=== PATIENT | male | born 1965 | race African-American/Black ===

== ENCOUNTER 2021-09-01 14:04 | Inpatient (IN) | payer OTHER ==
[2021-09-01] MEDS ORDERED: BENZOCAINE/MENTHOL (CHLORASEPTIC ) LOZENGE MM PRN (16:41)
[2021-09-01] MEDS ORDERED: MAG HYDROX/AL HYDROX/SIMETH 30 ML UNIT-DOSE CUP PO PRN (16:41)
[2021-09-01] MEDS ORDERED: ACETAMINOPHEN 325 MG TABLET (FP) PO PRN ×2 (16:41)
[2021-09-01] MEDS ORDERED: MAGNESIUM CITRATE 300 ML BOTTLE PO PRN (16:41)
[2021-09-01] MEDS ORDERED: methaDONE HCL 10 MG TABLET (FOR DETOX USE ONLY) PO ONE (16:41)
[2021-09-01] MEDS ORDERED: NICOTINE 10 MG CARTRIDGE (INHALER) IH PRN (16:41)
[2021-09-01] MEDS ORDERED: ONDANSETRON *ODT* 4 MG TABLET SL PRN (16:41)
[2021-09-01] MEDS ORDERED: MAGNESIUM HYDROX 2400MG/30ML ORAL SUSPENSION 30 ML CUP PO PRN (16:41)
[2021-09-01] MEDS ORDERED: cloNIDine HCL 0.1 MG TABLET PO PRN (16:41)
[2021-09-01] MEDS ORDERED: NICOTINE POLACRILEX 4 MG GUM BUC PRN (16:41)
[2021-09-01] MEDS ORDERED: DICYCLOMINE HCL 10 MG CAPSULE PO PRN (16:41)
[2021-09-01] MEDS ORDERED: BISMUTH SUBSALICYLATE 524 MG/30 ML PO PRN (16:41)
[2021-09-01] MEDS ORDERED: LOPERAMIDE HCL 2 MG CAPSULE PO PRN (16:41)
[2021-09-01] MEDS ORDERED: AMMONIUM LACTATE 12% LOTION 225 GM BOTTLE TP PRN (16:44)
[2021-09-01 18:54] VITALS: BMI 40.6
[2021-09-01] MEDS: ASPIRIN COATED 81 MG TABLET.EC PO SCH (19:00)
[2021-09-01] MEDS: METHOCARBAMOL 500 MG TABLET PO PRN (19:00)
[2021-09-01] MEDS: FAMOTIDINE 20 MG TABLET PO SCH (19:00)
[2021-09-01] MEDS: ALBUTEROL SO4 HFA INHALER IH PRN (21:46)
[2021-09-01] MEDS: TOLNAFTATE 1% CREAM 15 GM TUBE TP SCH (21:47)
[2021-09-01] MEDS: THIAMINE HCL 100 MG TABLET (FP) PO SCH (22:31)
[2021-09-01] MEDS: MELATONIN 5 MG TABLETS PO SCH (22:31)
[2021-09-02] MEDS ORDERED: methaDONE HCL 10 MG TABLET (FOR DETOX USE ONLY) ONE (09:47)
[2021-09-02] MEDS: FAMOTIDINE 20 MG TABLET PO SCH (10:34)
[2021-09-02] MEDS: ASPIRIN COATED 81 MG TABLET.EC PO SCH (10:34)
[2021-09-02] MEDS: ALBUTEROL SO4 HFA INHALER IH PRN (10:34)
[2021-09-02] MEDS: PRENATAL VITAMINS W/ FOLIC ACID TABLET (FP) PO SCH (10:34)
[2021-09-02] MEDS: TOLNAFTATE 1% CREAM 15 GM TUBE TP SCH ×2 (10:35→22:35)
[2021-09-02 11:39] LABS: HEMATOCRIT 29.2 % (35.4-49); HEMOGLOBIN 8.8 GM/dL (11.7-16.9); MCH 20.6 pg (25.7-33.7); MCHC 30.2 g/dl (32.0-35.9); MEAN CELL VOLUME 68.1 fl (80-96); MEAN PLT VOLUME 7.9 fl (7.5-11.1); PLATELET COUNT 311 10^3/uL (134-434); RBC 4.28 M/mm3 (4.00-5.60); RDW 19.9 % (11.9-15.9); WHITE BLOOD COUNT 4.3 K/mm3 (4.0-10.0)
[2021-09-02 11:57] LABS: ALBUMIN 2.9 g/dl (3.4-5.0)
[2021-09-02 12:00] LABS: CALCIUM 8.5 mg/dL (8.5-10.1)
[2021-09-02 12:01] LABS: BLOOD UREA NITROGEN 12.4 mg/dL (7-18)
[2021-09-02 12:04] LABS: CREATININE 0.9 mg/dL (0.55-1.3)
[2021-09-02 12:06] LABS: BILIRUBIN,TOTAL 0.3 mg/dL (0.2-1); TOT PROT 6.6 g/dl (6.4-8.2)
[2021-09-02] MEDS: SERTRALINE HCL 50 MG TABLET (FP) PO SCH (22:34)
[2021-09-02] MEDS: QUEtiapine FUMARATE 300 MG TABLET PO SCH (22:34)
[2021-09-02] MEDS: THIAMINE HCL 100 MG TABLET (FP) PO SCH (22:34)
[2021-09-02] MEDS: MELATONIN 5 MG TABLETS PO SCH (22:35)
[2021-09-03] MEDS ORDERED: methaDONE HCL 10 MG TABLET (FOR DETOX USE ONLY) PO ONE (10:00)
[2021-09-03] MEDS: ASPIRIN COATED 81 MG TABLET.EC PO SCH (10:48)
[2021-09-03] MEDS: PRENATAL VITAMINS W/ FOLIC ACID TABLET (FP) PO SCH (10:48)
[2021-09-03] MEDS: METHOCARBAMOL 500 MG TABLET PO PRN (10:48)
[2021-09-03] MEDS: FAMOTIDINE 20 MG TABLET PO SCH (10:48)
[2021-09-03] MEDS: TOLNAFTATE 1% CREAM 15 GM TUBE TP SCH ×2 (10:49→22:04)
[2021-09-03] MEDS: FERROUS SO4 325 MG TABLET (FP) PO SCH (17:36)
[2021-09-03] MEDS: SERTRALINE HCL 50 MG TABLET (FP) PO SCH (22:02)
[2021-09-03] MEDS: QUEtiapine FUMARATE 300 MG TABLET PO SCH (22:02)
[2021-09-03] MEDS: THIAMINE HCL 100 MG TABLET (FP) PO SCH (22:02)
[2021-09-03] MEDS: MELATONIN 5 MG TABLETS PO SCH (22:03)
[2021-09-04] MEDS: FERROUS SO4 325 MG TABLET (FP) PO SCH ×3 (07:02→19:04)
[2021-09-04] MEDS ORDERED: methaDONE HCL 10 MG TABLET (FOR DETOX USE ONLY) ONE (09:11)
[2021-09-04] MEDS: ASPIRIN COATED 81 MG TABLET.EC PO SCH (10:38)
[2021-09-04] MEDS: METHOCARBAMOL 500 MG TABLET PO PRN (10:38)
[2021-09-04] MEDS: FAMOTIDINE 20 MG TABLET PO SCH (10:38)
[2021-09-04] MEDS: PRENATAL VITAMINS W/ FOLIC ACID TABLET (FP) PO SCH (10:38)
[2021-09-04] MEDS: TOLNAFTATE 1% CREAM 15 GM TUBE TP SCH ×2 (10:40→23:25)
[2021-09-04] MEDS: amLODIPine BESYLATE 5 MG TABLET (FP) PO SCH (13:40)
[2021-09-04] MEDS: ALBUTEROL SO4 HFA INHALER IH PRN (22:24)
[2021-09-04] MEDS: SERTRALINE HCL 50 MG TABLET (FP) PO SCH (22:26)
[2021-09-04] MEDS: QUEtiapine FUMARATE 300 MG TABLET PO SCH (22:26)
[2021-09-04] MEDS: MELATONIN 5 MG TABLETS PO SCH (22:26)
[2021-09-04] MEDS: THIAMINE HCL 100 MG TABLET (FP) PO SCH (22:26)
[2021-09-05] MEDS: FERROUS SO4 325 MG TABLET (FP) PO SCH ×3 (08:04→17:28)
[2021-09-05] MEDS ORDERED: methaDONE HCL 10 MG TABLET (FOR DETOX USE ONLY) PO ONE (10:00)
[2021-09-05] MEDS: ALBUTEROL SO4 HFA INHALER IH PRN (11:51)
[2021-09-05] MEDS: ASPIRIN COATED 81 MG TABLET.EC PO SCH (11:52)
[2021-09-05] MEDS: TOLNAFTATE 1% CREAM 15 GM TUBE TP SCH ×2 (11:52→22:12)
[2021-09-05] MEDS: amLODIPine BESYLATE 5 MG TABLET (FP) PO SCH (11:53)
[2021-09-05] MEDS: METHOCARBAMOL 500 MG TABLET PO PRN (11:53)
[2021-09-05] MEDS: FAMOTIDINE 20 MG TABLET PO SCH (11:53)
[2021-09-05] MEDS: PRENATAL VITAMINS W/ FOLIC ACID TABLET (FP) PO SCH (11:54)
[2021-09-05 13:21] LABS: SARS-CoV-2 NAA NOT DETECTED
[2021-09-05] MEDS: SERTRALINE HCL 50 MG TABLET (FP) PO SCH (22:11)
[2021-09-05] MEDS: THIAMINE HCL 100 MG TABLET (FP) PO SCH (22:11)
[2021-09-05] MEDS: QUEtiapine FUMARATE 300 MG TABLET PO SCH (22:11)
[2021-09-05] MEDS: MELATONIN 5 MG TABLETS PO SCH (22:12)
[2021-09-06] MEDS: FERROUS SO4 325 MG TABLET (FP) PO SCH (08:30)
[2021-09-06 09:20] VITALS: BP 122/79; PULSE 93; TEMP 98.1
[2021-09-06] MEDS: FAMOTIDINE 20 MG TABLET PO SCH (09:37)
[2021-09-06] MEDS: amLODIPine BESYLATE 5 MG TABLET (FP) PO SCH (09:37)
[2021-09-06] MEDS: ASPIRIN COATED 81 MG TABLET.EC PO SCH (09:37)
[2021-09-06] MEDS: TOLNAFTATE 1% CREAM 15 GM TUBE TP SCH (09:38)
[2021-09-06] MEDS: PRENATAL VITAMINS W/ FOLIC ACID TABLET (FP) PO SCH (09:38)
== END 2021-09-06 09:54 | disposition home or self-care (01) | DRG 773 ==
LOC: YASAS 14:04 → Y6N 17:49
PROVIDERS: ADMIT Allergy & Immunology; ATTEND Surgery
PROC: HZ2ZZZZ Detoxification Services for Substance Abuse Treatment (ICD-10-PCS; principal; 2021-09-01)
DX: F11.23 Opioid dependence with withdrawal (principal); F14.20 Cocaine dependence, uncomplicated; F10.10 Alcohol abuse, uncomplicated; F17.210 Nicotine dependence, cigarettes, uncomplicated; F19.24 Other psychoactive substance dependence with psychoactive substance-induced mood disorder; F41.9 Anxiety disorder, unspecified; D50.9 Iron deficiency anemia, unspecified; B18.2 Chronic viral hepatitis C; J44.9 Chronic obstructive pulmonary disease, unspecified; M54.50 Low back pain, unspecified; G89.18 Other acute postprocedural pain; E66.01 Morbid (severe) obesity due to excess calories; Z68.41 Body mass index [BMI] 40.0-44.9, adult; Z86.718 Personal history of other venous thrombosis and embolism
CPT/HCPCS: 36415; 80053; 82607; 82746; 83540; 83550; 85027; 86780; 87811; 93005; 93010; C9803-CS; U0003; U0005